=== PATIENT | female | born 1995 | race Caucasian/White ===

== ENCOUNTER → 2019-02-02 02:15 | Observation (INO) ==
[2019-02-02 00:22] LABS: Amphetamine Screen,Urine Negative ng/mL (Cutoff=1000); Barbiturate Screen,Urine Negative ng/mL (Cutoff=200); Benzodiazepines Screen,Urine Negative ng/mL (Cutoff=200); Cannabinoid Screen,Urine Negative ng/mL (Cutoff = 50); Cocaine Screen,Urine Negative ng/mL (Cutoff= 300); Opiate Screen,Urine Negative ng/mL (Cutoff=300); Phencyclidine Screen,Urine Negative ng/mL (Cutoff=25)
--- NOTE | 2019-02-02 02:46 | OB/GYN Progress Note ---
Date of Encounter: 02/02/19 Time of Encounter: 02:44 - Assessment and Plan (1) 38 weeks gestation of Current Visit: Yes Status: Acute (2) Uterine contractions during Current Visit: Yes Status: Acute No change on serial cervical exams. Discharged home with labor and when to return to triage precautions. Patient verbalizes understanding and in agreement with plan Subjective - Subjective Interval history: 38 weeks gestation presents to triage with complaints of contractions. Patient started luz last evening and have become stronger more frequent. Reports good movement, denies vaginal bleeding or leaking of fluid. Antepartum ROS: movement normal, contractions, no loss of fluid, no vaginal bleeding Objective - Exam FHR: auscultation normal Cervical dilation: Fingertip/thick/high per RN
== END | disposition home or self-care (01) ==
LOC: 1NENULAB
PROVIDERS: ADMIT Advanced Practice Midwife; ATTEND Advanced Practice Midwife

== ENCOUNTER 2019-02-19 13:29 | Inpatient (IN) ==
[2019-02-19] MEDS ORDERED: Ringers Solution, Lactated 1,000 ML ONE (14:50)
[2019-02-19] MEDS ORDERED: Lidocaine 1% 20 ML MDV ID PRN (14:59)
[2019-02-19] MEDS ORDERED: Metoclopramide 10 MG/2 ML VIAL IVP PRN (14:59)
[2019-02-19] MEDS ORDERED: Famotidine 20 MG/2 ML VIAL IVP PRN (14:59)
[2019-02-19] MEDS ORDERED: Naloxone 0.4 MG/ML INJ IVP PRN (14:59)
[2019-02-19] MEDS ORDERED: Ondansetron 4 MG/2 ML VIAL IVP PRN (14:59)
[2019-02-19] MEDS ORDERED: Ringers Solution, Lactated 1,000 ML IVC SCH (15:00)
[2019-02-19] MEDS ORDERED: Penicillin G Potassium 5,000,000 UNIT in 0.9 % Sodium Chloride Mini Bag 100 ML IVPB ONE (15:01)
[2019-02-19 15:19] LABS: Basophils % 0.4 %; Eosinophils # 0.2 K/mcL (0.0-0.6); Eosinophils % 1.4 %; Hematocrit 38.4 % (35.3-44.9); Immature Granulocytes % 1.4 % (0-4); Lymphocytes % 18.2 %; Mean Corpuscular HGB Conc 33.9 g/dL (31.6-35.5); Mean Corpuscular Volume 85.7 fL (83.0-100.0); Mean Platelet Volume 12.4 fL (9.4-12.4); Monocytes # 0.7 K/mcL (0.0-1.3); Platelet Count 159 K/mcL (140-400); Red Blood Count 4.48 M/mcL (3.82-4.97); Red Cell Distribution Width 14.7 % (11.5-14.5); Segmented Neutrophils % 72.6 %; White Blood Count 10.9 K/mcL (4.3-11.1)
[2019-02-19 15:29] LABS: Amphetamine Screen,Urine Negative ng/mL (Cutoff=1000); Barbiturate Screen,Urine Negative ng/mL (Cutoff=200); Benzodiazepines Screen,Urine Negative ng/mL (Cutoff=200); Cannabinoid Screen,Urine Negative ng/mL (Cutoff = 50); Cocaine Screen,Urine Negative ng/mL (Cutoff= 300); Opiate Screen,Urine Negative ng/mL (Cutoff=300); Phencyclidine Screen,Urine Negative ng/mL (Cutoff=25)
[2019-02-19] MEDS ORDERED: miSOPROStol 25 MCG TABLET PO PRN (15:38)
[2019-02-19] MEDS ORDERED: Oxytocin 20 units/ LR 1000 mL 20 UNIT/1,000 ML BAG IVC SCH (15:45)
[2019-02-19] MEDS: *HR* Nalbuphine 10 MG/ML AMPUL IVP PRN ×2 (16:17→20:20)
--- NOTE | 2019-02-19 16:22 | OB/GYN History & Physical ---
Date of Encounter: 02/19/19 Time of Encounter: 16:13 Assessment and Plan (1) Post term over 40 weeks Current visit: Yes Status: Acute Admit for IOL at 40w3d Discussed double kelly induction with patient and she agrees to proceed. Double cervical kelly balloon placed without difficulty. 60mL sterile water instilled in uterine balloon, 40mL sterile water instilled in vaginal balloon. Recheck cervix in 4 hours AROM when appropriate Epidural or IV pain medication when patient desires. Anticipate (2) heart rate decelerations affecting management of mother Current visit: Yes Status: Acute Admit to L&D for IOL at 40w3d due to post term and FHR decelerations Continous monitoring. (3) GBS (group B Streptococcus carrier), +RV culture, currently Current visit: Yes Status: Acute PCN prophylaxis q4h until delivery. (4) Blood type O+ Current visit: Yes Status: Acute Collect cord blood at delivery History of Present Illness Chief complaint: Contractions 40w3d HPI: Ms. Escoto is a 24 year old female at 40w3d who presents today with complaints of regular contractions that have been getting progressively worse since 0430 this morning. She reports positive movement, denies vaginal bleeding and reports some bloody show today. Shortly after arrival, there were some variable decelerations noted followed by one 70 second decel to a qi of 90 bpm. Another prolonged deceleration was noted approximately 10 minutes after that. Due to her gestation and presence of decelerations, decision was made in collaboration with Dr. Canada to admit for IOL. Patient is agreeable to this plan. Blood type O+ GBS POSITIVE HbSAG negative RPR negative Rubella Immune Varicella Immune Past Med Surg Social Fam HX - Past Medical History Source: patient Medical history: no medical history Psychiatric history: anxiety, depression - Past Surgical History Surgical History: other Additional surgical history: wisdom teeth, mole removal from back - Social History Smoking Status: Never smoker Smokeless Tobacco Status: No Alcohol use: none Drug use: none Current living situation: Home - Independent, With Family Activity Level: Independent ambulation Recent Out of Country Travel Within the Last 8 Weeks: No Exposure or Possible Exposure to Illness During Travel: No - Family History Mother Living Status: Still Living Hx Family Cardiac Disorders: Yes (high cholesterol) Hx Family Respiratory Disorders: No Hx Family Cancer: No Hx Family GI Disorders: No Hx Family Genitourinary Disorders: No Hx Family Endocrine Disorder: Yes ([place]) Hx Family Musculoskeletal Disorders: No Hx Family Neuromuscular Disorders: No Hx Family Neurologic Disorders: No Hx Family HEENT Disorders: No Hx Family Autoimmune Disorders: No Hx Family Reproductive Disorders: No Hx Family Psychosocial Disorders: No Hx Family Medical Disorders: No Obstetrical History - Pregnancies : 1 Medications and Allergies Ferrous Sulfate 325 mg PO DAILY 12/10/18 [History] Formula Tablet 1 tab PO DAILY 12/10/18 [History] Zoloft 50 mg PO DAILY 12/10/18 [History] Rajani-D 24 Hour Tablet 02/01/19 [History] Allergy/AdvReac Type Severity Reaction Status Date / Time No Known Allergies Allergy Verified 02/01/19 23:46 Review of System OB All systems PM: reviewed and no additional remarkable complaints except as stated Exam - Constitutional Constitutional: well developed, well nourished, no acute distress, average body habitus - HEENT HEENT: Mucus Membranes Moist - Neck Neck exam: full ROM - Lungs Respiratory exam: CTAB - Cardiovascular Cardiovascular exam: RRR, +S1, +S2 - Abdomen Abdomen: Present: bowel sounds normal, gravid, non tender - Extremities Extremities exam: full ROM, normal capillary refill, normal inspection - Vulva Vulva: bilateral: normal - Vagina Vagina: Present: normal moisture - Cervix Dilation: 1 (1-2 cm) Effacement: 80 Station: -2 - Uterus Uterus exam: Present: normal size Results Result Diagrams: 02/19/19 15:00 Abnormal lab results RDW 14.7 % (11.5-14.5) H 02/19/19 15:00 All other labs normal. - VTE Reasons for not Prescribing Prophylaxis: Treatment not Indicated - Low risk for VTE
--- NOTE | 2019-02-19 19:24 | Anesthesia Evaluation PreOp ---
Date of Encounter: 02/19/19 Time of Encounter: 19:00 - Past History Planned Operation: labor epidural Cardiac History: Denies any Significant Hx Pulmonary History: Denies Any Significant HX OPERATIONS CONTROLLER History: Other (anxiety/depression/OCD. On Zoloft.) Other Medical History: Other ([place], BMI 49. Also reports a cheerleading injury to back approximately 2010. was told had multiple bulging discs with possible fractures. Unsure of what vertebra involved, was told her entire spine was involved. Did not have any surgery and was seen a few times by a chiropractor. Denies problems with back now, no recurrence of problems with . Has no numbness/tingling to legs. Discussed with patient the possibility of the epidural procedure aggravating or worsening any possible previous injury to her back. She verbalized understanding and proceeded with signing the consent.) Anesthesia History: No Prior Anesthetic Complications, Past Anesthesia (wisdom teeth extracted, no problems. Has never had GA. No FHAP.) : Yes Alcohol Use: none Drug use: none Medications and Allergies Ferrous Sulfate 325 mg PO DAILY 12/10/18 [History] Formula Tablet 1 tab PO DAILY 12/10/18 [History] Zoloft 50 mg PO DAILY 12/10/18 [History] Rajani-D 24 Hour Tablet 02/01/19 [History] Allergy/AdvReac Type Severity Reaction Status Date / Time No Known Allergies Allergy Verified 02/01/19 23:46 - Meds/Allergy Pre-op Review Medications Reviewed: Yes Allergies Reviewed: Yes Beta Blockers on Current Med List: No Anesthesia Results - Labs 02/19/19 15:00 Anesthesia Exam 142/91, 77,16. FHTs 120s. Height: 5'3" Weight: 127 kg NPO (# of Hours): 6.5 Pain Scale: 3 Pain Scale Used: Numeric (1 - 10) - HEENT Pupil (Motor): Pupils equal Mallampati: III Teeth: Normal Oral Opening: Greater than 3 - OPERATIONS CONTROLLER LOC: Oriented OPERATIONS CONTROLLER Motor: Normal RUE, Normal LUE, Normal RLE, Normal LLE, Normal Face OPERATIONS CONTROLLER Sensory: Normal: RUE, LUE, RLE, LLE, Face - Cardiac Rhythm: Regular - Pulmonary Breath Sounds: bilateral Clear Respiratory Effort: Symmetrical Anesthesia Assess/Plan ASA Score: 3 ([place], BMI 49. Anxiety/depression.) Monitoring Plan: Standard Monitors
--- NOTE | 2019-02-19 19:29 | OB Labor Progress Note ---
Date of Encounter: 02/19/19 Time of Encounter: 19:23 Labor Progress Note - Subjective Subjective: Patient coping well with contractions. Family at bedside for support. - Vital Signs Vital Signs: WNL - Cervix Cervix: 4 cm - Heart Tones Heart Tones: FHR 125 bpm, moderate variability, +15x15 accels, occasional variable decels. - [place]: 2-4 minutes - Interventions Interventions: SVE after removal of vaginal balloon water. 4 cm on SVE, Vaginal kelly balloon reinflated. - Plan Physician notified: Yes Physician notified details: Dr. Canada notified of SVE Plan: Cervical kelly to remain in place. Recheck cervix in 4 hours. AROM when appropriate IV pain medication or epidural when patient desires Anticipate
[2019-02-19] MEDS ORDERED: Epidural Premix (fent/bupiv) 110 ML EP SCH (19:30)
[2019-02-19] MEDS: Penicillin G Potassium 2,500,000 UNIT in 0.9 % Sodium Chloride 100 ML IVPB SCH (20:19)
--- NOTE | 2019-02-19 22:10 | OB Labor Progress Note ---
Date of Encounter: 02/19/19 Time of Encounter: 20:58 Labor Progress Note - Subjective Subjective: Patient coping well with contractions. - Cervix Cervix: 5-6 cm - Heart Tones Heart Tones: FHR 130 bpm, moderate variability, +15x15 accels, no decels. - [place]: Irregular. Difficult to determine due to patient positioning. - Interventions Interventions: SVE Kelly balloon removed - Plan Physician notified: Yes Physician notified details: Dr. Canada made aware of SVE and kelly removal Plan: Start Pitocin once second dose of PCN has infused. AROM when appropriate Anticipate
--- NOTE | 2019-02-20 00:56 | OB Labor Progress Note ---
Date of Encounter: 02/20/19 Time of Encounter: 00:53 Labor Progress Note - Subjective Subjective: Pt tolerating contractions well - Cervix Cervix: 7/80/-2 - Heart Tones Heart Tones: Baseline 150 Moderate variability Accelerations present 15x15 No decelerations FHR Category I - [place]: Contractions every 2-3 minutes and palpate strong - Interventions Interventions: SVE - Plan Physician notified: No Plan: Continue induction management Frequent position changes May have epidural upon request Continuous labor support Anticipate
[2019-02-20] MEDS ORDERED: *HR* FentaNYL (PF) 100 MCG/2 ML VIAL ONE (01:52)
[2019-02-20] MEDS ORDERED: Bupivacaine-MPF 0.25% 10 ML VIAL ONE (01:52)
--- NOTE | 2019-02-20 02:39 | Anesthesia Procedures ---
Date of Encounter: 02/20/19 Time of Encounter: 01:55 Procedures: Anesthesia - Epidural/Spinal Patient ID/Chart reviewed: Yes Patient examined: Yes OB Eval: Gestational age: 40 OB Eval: : 1 OB Eval: Hx Para: 0 OB Eval: Dilated at (cm): 7 OB Eval: Contractions: Non-stressed pattern Consent Obtained: Yes Supplemental Oxygen: None/Room Air Site Prep: Aseptic Technique, Sterile prep and drape, 0.5% Chlorhexidine/Alcohol Patient position: upright Local Anesthetic: Lidocaine 1% Amount of Local Anesthetic used: 5 Touhy Needle Gauge: 18 Touhy Needle Depth (cm): 9 Catheter Depth at Skin (cm): 15 Test Dose (1.5% Lido + Epi): Volume given (mls): 3 Test Dose Result: Negative Loading Dose: 0.25% Marcaine (mls): 5 Loading Dose: Fentanyl (mcg): 100 Loading Dose Administered: Thru Catheter Infusion Med: 0.125% Bupivacaine w/ 2 mcg/ml Fentanyl Infusion Rate (mls/hr): 13 (demand [id number] q 20 mins. limit of 2 per hour) Catheter Secured in Place: Tegaderm, Tape Interspace Used: L3-L4 Loss of Resistance ([place]): Yes Blood: No CSF: No Paresthesia: No Procedure: dural puncture technique with 25 gauge annie, no meds given in subarachnoid space. Vitals + FHT's: Vital Signs Time 0155 0215 0220 0225 0230 BP 125/76 136/75 120/70 111/60 114/80 Pulse 97 85 89 87 87 FHTs 120 130 120 120 120
--- NOTE | 2019-02-20 02:44 | OB Labor Progress Note ---
Date of Encounter: 02/20/19 Time of Encounter: 02:39 Labor Progress Note - Subjective Subjective: Patient comfortable with epidural - Cervix Cervix: 7/80/-1 - Heart Tones Heart Tones: Baseline 140 Moderate variability Accelerations present 15 x 15 Variable and prolonged decelerations resolved with position changes FHR category II - [place]: Contractions every 4 minutes - Interventions Interventions: SVE AROM-moderate amount of thick meconium-stained fluid Peanut ball on the left side - Plan Physician notified: No Plan: Continue induction management Hourly position changes with peanut ball Reassess cervix in 2-4 hours Anticipate
--- NOTE | 2019-02-20 03:14 | OB Labor Progress Note ---
Date of Encounter: 02/20/19 Time of Encounter: 03:04 Labor Progress Note - Subjective Subjective: Pt comfortable with epidural - Cervix Cervix: 7-8/80/-2 - Heart Tones Heart Tones: Baseline 140 Moderate variability No accelerations Variable and late decelerations with iq in 80's FHR category II - [place]: Contractions every 2-4 minutes - Interventions Interventions: SVE IUPC placed FSE placed - Plan Physician notified: Yes Physician notified details: Dr. Canada notified of category II tracing Plan: Continue induction management Position changes as needed Anticipate
[2019-02-20] MEDS: Penicillin G Potassium 2,500,000 UNIT in 0.9 % Sodium Chloride 100 ML IVPB SCH (04:20)
--- NOTE | 2019-02-20 04:37 | OB Labor Progress Note ---
Date of Encounter: 02/20/19 Time of Encounter: 04:34 Labor Progress Note - Subjective Subjective: Pt comfortable with epidural - Cervix Cervix: 7-8/80/-2 - Heart Tones Heart Tones: Baseline 120 Minimal variability No accelerations Late and variable decelerations FHR Category II - [place]: IUPC wtih contractions every 4 minutes - Interventions Interventions: SVE Position changes - Plan Physician notified: Yes Physician notified details: Dr. Canada called to bedside for persistent category II tracing Plan: At this time care is turned over to Dr. Canada in order to proceed with PLTCS for NRFHT
[2019-02-20] MEDS ORDERED: *HR* Morphine Sulfate/PF 10 MG/10 ML AMPUL ONE (04:40)
[2019-02-20] MEDS ORDERED: Lidocaine/EPI 1:200k 2% PF 20 ML VIAL ONE (04:40)
[2019-02-20] MEDS ORDERED: *HR* Oxytocin 10 UNIT/ML VIAL IM ONE ×2 (04:41→05:09)
[2019-02-20] MEDS ORDERED: Water for inj. (sterile) 10 ML ONE ×3 (04:41→05:15)
[2019-02-20] MEDS ORDERED: Ringers Solution, Lactated 1,000 ML ONE (05:03)
[2019-02-20] MEDS ORDERED: EPHEDrine 50 MG/ML VIAL ONE (05:15)
--- NOTE | 2019-02-20 05:35 | OB/GYN Procedure Note ---
Section - Date of procedure: 02/20/19 Preop diagnosis: arrest of descent, category 2 FHT tracing, category 3 FHT tracing Post-op diagnosis: same Procedure: primary low transverse Surgeon: Jessica Chappell Blood Loss: 400 Was there an activities assistant present: No Firer Tunnel Kiln: Jodi Almanza Anesthesia Type: Epidural section complications: none Disposition: PACU Specimens: Cord blood - Infant (s) A Delivery Date: 02/20/19 Delivery Time: 05:04 Presentation: vertex Position: unknown Route of delivery: other Gender: Male Viability: Viable Pounds: 8 Ounces: 6 Gram Weight: 3.795 kg at 1 minute: 8 at 5 minutes: 9 Shoulder Dystocia: not encountered Specimens collected: cord blood Placenta: partial extraction Cord: nuchal cord, nuchal reduced - Narrative Narrative: Preoperative diagnosis: Nonreassuring heart rate monitoring Postoperative diagnosis: Same Procedure: Primary low transverse section Surgeon: Parris Anesthesia: Epidural Complications: None Estimated loss: 400 mL Findings: Normal uterus ovaries and fallopian tube. Mildly stained meconium stained fluid. Viable male with Apgars of 8 and 9. Procedure: Patient was taken to the operating suite and after adequate anesthesia was assured she is prepped and draped in the usual sterile fashion. A Pfannenstiel incision was created and taken down through the subcutaneous fascia fascia was the rectus muscles. Rectus muscles were divided in the midline appear to cavity is entered superiorly without consequence to bowel or bladder. The uterus was entered in a low transverse fashion. Upon entry into uterus a small amount of meconium-stained fluid was noted. A viable male was atraumatically delivered from the uterus without difficulty. There was a loose nuchal cord gently reduced. Cord was doubly clamped and cut and infant was handed to our nurses in attendance. Apgars were 8 and 9 at one and 5 minutes respectively. When all placental fragments were set clean from the uterus the uterus is close to one length of Vicryl in a running and locked fashion. The uterus was replaced within the abdominal cavity. Surgical sites were all inspected. Irrigation was performed. Hemostasis was assured. When all sponge lap needle and instrument counts for surgical be correct 2 the fascia was closed with one length of Vicryl. The subcutaneous tissue was closed with interrupted sutures and the skin was closed with cruz. We had no intraoperative complications. Both mother and baby were doing well. The procedure. At the end the procedure final lap sponge and instrument counts were correct 2.
[2019-02-20] MEDS ORDERED: Famotidine 20 MG/2 ML VIAL IVP SCH (06:00)
[2019-02-20] MEDS ORDERED: Ibuprofen 400 MG TABLET PO PRN (06:14)
[2019-02-20] MEDS ORDERED: *HR* OxyCODONE/APAP 5/325 TABLET PO PRN (06:14)
[2019-02-20] MEDS ORDERED: *HR* HYDROmorphone (PF) 1 MG/ML SYRINGE IVP PRN (06:14)
--- NOTE | 2019-02-20 06:38 | Anesthesia Evaluation Post Op ---
Date of Encounter: 02/20/19 Time of Encounter: 06:33 - Vital Signs Vital Signs: VSS throughout pacu stay. - Lungs Lungs: Clear Ascult./Percussion - Airway Airway: Non-obstructed - Cardiovascular Regular Rate - Mental Status Mental Status: Alert & Oriented, Answers Appropriately - Pain Pain Scale: 0 Pain Scale used: Numeric (1 - 10) - Nausea Vomiting Nausea Vomiting: Not Present - Hydration Hydration: NPO, Oates catheter - Discharge PostOp Status: Transfer Patient to floor
[2019-02-20] MEDS ORDERED: ceFAZolin 1,000 MG in Water for inj. (sterile) 10 ML IVP SCH (08:00)
[2019-02-20] MEDS ORDERED: Acetaminophen 325 MG TABLET PO PRN (09:02)
[2019-02-20] MEDS ORDERED: Rho Immune Globulin 1,500 UNIT SYRINGE IM ONE (09:02)
[2019-02-20] MEDS ORDERED: Ondansetron 4 MG/2 ML VIAL IVP PRN (09:02)
[2019-02-20] MEDS ORDERED: Oxytocin 20 units/ LR 1000 mL 20 UNIT/1,000 ML BAG IVC SCH (09:02)
[2019-02-20] MEDS ORDERED: Sennosides 8.6 MG TABLET PO PRN (09:02)
[2019-02-20] MEDS ORDERED: Metoclopramide 10 MG/2 ML VIAL IVP PRN (09:02)
[2019-02-20] MEDS: *HR* OxyCODONE/APAP 5/325 TABLET PO PRN ×2 (15:48→22:36)
[2019-02-20] MEDS: Ibuprofen 600 MG TABLET PO PRN (22:06)
[2019-02-21] MEDS: Ibuprofen 600 MG TABLET PO PRN ×2 (07:02→15:17)
[2019-02-21] MEDS: *HR* OxyCODONE/APAP 5/325 TABLET PO PRN ×3 (07:03→20:03)
[2019-02-21 08:13] LABS: Basophils % 0.2 %; Eosinophils # 0.2 K/mcL (0.0-0.6); Eosinophils % 2.1 %; Hematocrit 32.6 % (35.3-44.9); Immature Granulocytes % 0.6 % (0-4); Lymphocytes # 1.7 K/mcL (0.6-4.6); Lymphocytes % 16.1 %; Mean Corpuscular HGB Conc 32.8 g/dL (31.6-35.5); Mean Corpuscular Hemoglobin 29.2 pg (28.0-33.3); Mean Corpuscular Volume 88.8 fL (83.0-100.0); Mean Platelet Volume 11.7 fL (9.4-12.4); Monocytes # 0.7 K/mcL (0.0-1.3); Monocytes % 6.6 %; Neutrophils # 8.1 K/mcL (1.6-8.9); Platelet Count 117 K/mcL (140-400); Red Blood Count 3.67 M/mcL (3.82-4.97); Red Cell Distribution Width 14.9 % (11.5-14.5); Segmented Neutrophils % 74.4 %; White Blood Count 10.8 K/mcL (4.3-11.1)
[2019-02-21 08:17] LABS: Hemoglobin 10.7 g/dL (11.5-15.4)
[2019-02-21] MEDS: Prenatal Vit/FA 1 EACH TABLET PO SCH (08:37)
--- NOTE | 2019-02-21 10:27 | OB/GYN Progress Note ---
Date of Encounter: 02/21/19 Time of Encounter: 10:25 - Assessment and Plan (1) S/P primary low transverse Current Visit: Yes Status: Acute patient is postop day one meeting day one milestones anticipate discharge home tomorrow (2) Breast feeding status of mother Current Visit: Yes Status: Acute support prn Subjective - Subjective Principal diagnosis: Patient status post primary c/s Interval history: Patient is postop day 1. She is passing gas and ambulating without difficulty. Patient reports pain is well controlled. Lochia is light and without blood clots. Patient reports: appetite normal, voiding normally, pain well controlled, ambulating normally : doing well, nursing well Objective - Vital Signs Latest vital signs: Vital Signs Temp Pulse Pulse Resp BP Pulse Ox 02/21/19 09:58 16 02/21/19 08:20 98.7 F 92 14 113/71 97 02/21/19 04:50 98.4 F 88 15 88/62 98 02/21/19 00:01 98.7 F 89 16 104/67 96 02/20/19 22:39 98 02/20/19 22:06 98.6 F 101 16 107/72 97 02/20/19 16:00 98.2 F 102 16 111/65 02/20/19 11:30 97.9 F 100 16 110/70 98 02/20/19 10:41 97.7 F 121 16 109/64 98 Intake and Output 02/20/19 02/21/19 02/21/19 23:59 07:59 15:59 Intake Total 500 / 600 1090 / 1090 Output Total 750 / 1250 400 / 400 Balance -250 / -650 690 / 690 Intake: IV Fluids 1090 / 1090 Pitocin 20 unit In 1,000 ml @ 990 / 990 125 mls/hr IVC .Q8H DELANEY Rx#: [id number] Ancef 2,000 MG In 0.9 % Sodium 100 / 100 Chloride 100 ML @ 200 mls/hr IVPB Q8HR DELANEY Rx#:[id number] Oral 500 / 500 Output: Catheter 750 / 1250 400 / 400 Other: Stool Characteristics Normal for Patient Normal for Patient Weight 123.105 kg Patient Weight 02/21/19 23:59 Weight 123.105 kg - Exam Lungs: bilateral: normal Chest: Normal S1, Normal S2 Extremities: Present: normal Abdomen: Present: normal appearance, soft, gravid Incision: Present: normal, dry, intact Uterus: Present: normal, firm - Labs Labs: Laboratory Results - last 24 hr 02/21/19 08:02 WBC 10.8 RBC 3.67 L Hgb 10.7 L D Hct 32.6 L MCV 88.8 MCH 29.2 MCHC 32.8 RDW 14.9 H Plt Count 117 L MPV 11.7 Immature Gran % 0.6 Seg Neutrophils % 74.4 Lymphocytes % 16.1 Monocytes % 6.6 Eosinophils % 2.1 Basophils % 0.2 Neutrophils # 8.1 Lymphocytes # 1.7 Monocytes # 0.7 Eosinophils # 0.2 Basophils # 0.0
[2019-02-21] MEDS: Loratadine/Pseudophed (12 HR) 1 EACH TABLET PO SCH (11:09)
[2019-02-21] MEDS: Simethicone 80 MG TAB.CHEW PO PRN ×2 (15:17→20:03)
[2019-02-21] MEDS ORDERED: Ringers Solution, Lactated 1,000 ML ONE (23:20)
[2019-02-22] MEDS: Ibuprofen 600 MG TABLET PO PRN ×2 (00:08→08:04)
[2019-02-22] MEDS: Loratadine/Pseudophed (12 HR) 1 EACH TABLET PO SCH (00:10)
[2019-02-22] MEDS: Prenatal Vit/FA 1 EACH TABLET PO SCH (08:04)
[2019-02-22] MEDS: Simethicone 80 MG TAB.CHEW PO PRN (08:04)
[2019-02-22 09:43] VITALS: BP 105/70
--- NOTE | 2019-02-22 11:47 | Discharge Summary ---
Date of Encounter: 02/22/19 Time of Encounter: 11:45 - Discharge Diagnosis (1) S/P primary low transverse Priority: Primary Status: Acute Comments: Patient meeting day two milestones. Pain well-controlled with prescribed medications. Voiding without difficulty, tolerating regular diet, bleeding light. No bowel movement yet, + flatus. Anticipate discharge today [facility] report reviewed and appropriate (2) Breast feeding status of mother Priority: Secondary Status: Acute Comments: support as needed Will provide breast pump prescription if needed. - Discharge Medications Prescriptions: New Loratadine/Pseudophed (12 HR) [Claritin D (12HR)] 1 each PO BID tablet Docusate [Colace] 100 mg PO BID #60 capsule Ibuprofen [Motrin] 600 mg PO Q6HR PRN #60 tablet PRN Reason: Cramping OxyCODONE/APAP 5/325 [Percocet 5/325 MG] 1 each PO Q6H PRN 7 Days #28 tablet PRN Reason: Moderate pain 4-6 Acetaminophen [Tylenol] 325 mg PO Q6HR PRN tablet PRN Reason: Fever/Pain Simethicone [Gas-X] 80 mg PO TID PRN tab.chew PRN Reason: Dyspepsia Continued Formula Tablet 1 tab PO DAILY Zoloft 50 mg PO DAILY Rajani-D 24 Hour Tablet Discontinued Ferrous Sulfate 325 mg PO DAILY Home Medications: Formula Tablet 1 tab PO DAILY 12/10/18 [History] Zoloft 50 mg PO DAILY 12/10/18 [History] Rajani-D 24 Hour Tablet 02/01/19 [History] Acetaminophen [Tylenol] 325 mg PO Q6HR PRN tablet 02/22/19 [Rx] Docusate [Colace] 100 mg PO BID #60 capsule 02/22/19 [Rx] Ibuprofen [Motrin] 600 mg PO Q6HR PRN #60 tablet 02/22/19 [Rx] Loratadine/Pseudophed (12 HR) [Claritin D (12HR)] 1 each PO BID tablet 02/22/19 [Rx] OxyCODONE/APAP 5/325 [Percocet 5/325 MG] 1 each PO Q6H PRN 7 Days #28 tablet 02/22/19 [Rx] Simethicone [Gas-X] 80 mg PO TID PRN tab.chew 02/22/19 [Rx] Allergies/Adverse Reactions: Allergy/AdvReac Type Severity Reaction Status Date / Time No Known Allergies Allergy Verified 02/01/19 23:46 Data Procedures and tests throughout hospitalization: Laboratory Tests 02/19/19 02/19/19 02/21/19 15:00 15:00 08:02 WBC 10.9 10.8 RBC 4.48 3.67 L Hgb 13.0 10.7 L D Hct 38.4 32.6 L MCV 85.7 88.8 MCH 29.0 29.2 MCHC 33.9 32.8 RDW 14.7 H 14.9 H Plt Count 159 117 L MPV 12.4 11.7 Immature Gran % 1.4 0.6 Seg Neutrophils % 72.6 74.4 Lymphocytes % 18.2 16.1 Monocytes % 6.0 6.6 Eosinophils % 1.4 2.1 Basophils % 0.4 0.2 Neutrophils # 8.0 8.1 Lymphocytes # 2.0 1.7 Monocytes # 0.7 0.7 Eosinophils # 0.2 0.2 Basophils # 0.0 0.0 Urine Opiates Screen Negative Ur Buprenorphine Scrn Negative Ur Barbiturates Screen Negative Ur Phencyclidine Scrn Negative Ur Amphetamines Screen Negative U Benzodiazepines Scrn Negative Urine Cocaine Screen Negative U Marijuana (THC) Screen Negative Ur Drug Screen Interp See Below Date of admission: 02/19/19 13:29 Primary care physician: Alicia Mendez CNP Discharging clinician: Samira Wu Anticipated date of discharge: 02/22/19 - Patient Status Disposition: Home, Self-Care Condition: Good Functional capacity at discharge: independent ambulation Overall status at discharge: patient is progressing back to baseline - Discharge Instructions Follow Up With: Alicia Mendez CNP [Primary Care Provider] - Oebd Peterson DO [Partnered Physician] - - Diet and Activity Activity: resume usual activities as tolerated Diet: regular diet Hospital Course Reason for admission: induction of labor (Came in with c/o contractions, had decels.), IUP at term Time Attestation: Total time spent providing and/or coordinating discharge services: - VTE Reasons for not Prescribing Prophylaxis: Treatment not Indicated - Low risk for VTE Documentation of Mechanical Device: Intermittent pneumatic compression device Exam - Constitutional Vitals: Temp Pulse Resp BP Pulse Ox 97.9 F 92 16 105/70 98 02/22/19 08:10 02/22/19 08:10 02/22/19 10:07 02/22/19 08:10 02/22/19 08:10 General appearance IM: A&O X 3, pleasant, no acute distress, answers questions appropriately - Respiratory Respiratory exam: Present: CTAB. Absent: respiratory distress - Cardiovascular Cardiovascular exam IM: Present: RRR, +S1, +S2. Absent: irregular rhythm - GI/Abdominal GI/Abdominal exam IM: normal bowel sounds Incision: normal, dry, intact (cruz intact) - Rectal Rectal exam: deferred - External exam: normal external exam Uterine Tone: Firm Uterus Position: At Umbilicus, Midline - Extremities Exam Extremities exam IM: Present: full ROM, normal capillary refill, normal inspecti on. Absent: calf tenderness - Neurological Exam Neurological exam: alert, normal gait, oriented X3
[2019-02-22] MEDS: *HR* OxyCODONE/APAP 5/325 TABLET PO PRN (12:51)
== END 2019-02-22 14:30 | disposition home or self-care (01) | DRG 788 ==
LOC: 1NENULAB → OBSVTOIN 13:29 → 1NENUOBS 02-20 09:00
PROVIDERS: ADMIT Registered Nurse; ATTEND Registered Nurse

== ENCOUNTER → 2020-07-14 03:53 | Observation (INO) | END | disposition home or self-care (01) | LOC: 1NENULAB | PROVIDERS: ADMIT Obstetrics & Gynecology; ATTEND Obstetrics & Gynecology ==

== ENCOUNTER → 2020-07-15 15:14 | Observation (INO) | END | disposition home or self-care (01) | LOC: 1NENULAB | PROVIDERS: ADMIT Obstetrics & Gynecology; ATTEND Obstetrics & Gynecology ==

== ENCOUNTER 2020-07-22 03:49 | Inpatient (IN) ==
[2020-07-22] MEDS ORDERED: Acetaminophen 325 MG TABLET PO ONE (05:13)
[2020-07-22] MEDS ORDERED: *HR* FentaNYL (PF) 100 MCG/2 ML VIAL IVP PRN (06:02)
[2020-07-22] MEDS ORDERED: Ondansetron 4 MG/2 ML VIAL IVP STA (08:05)
[2020-07-22] MEDS ORDERED: Ringers Solution, Lactated 1,000 ML ONE ×2 (09:24→11:15)
[2020-07-22] MEDS ORDERED: EPHEDrine 50 MG/ML VIAL IVP PRN (09:27)
[2020-07-22] MEDS ORDERED: *HR* FentaNYL (PF) 100 MCG/2 ML VIAL EP ONE (09:27)
[2020-07-22] MEDS ORDERED: Ropivacaine/PF 0.2% 20 ML VIAL EP ONE (09:27)
[2020-07-22] MEDS ORDERED: *HR* FentaNYL (PF) 100 MCG/2 ML VIAL ONE ×5 (09:34→19:55)
[2020-07-22] MEDS ORDERED: Ropivacaine/PF 0.2% 20 ML VIAL ONE (09:34)
[2020-07-22 09:46] LABS: Hematocrit 43.3 % (35.3-44.9)
[2020-07-22 09:48] LABS: Basophils % 0.2 %; Eosinophils # 0.1 K/mcL (0.0-0.6); Eosinophils % 0.7 %; Hemoglobin 14.2 g/dL (11.5-15.4); Immature Granulocytes % 0.7 % (0-4); Immature Platelets 12.5 % (1.1-6.1); Lymphocytes # 2.7 K/mcL (0.6-4.6); Lymphocytes % 21.7 %; Mean Corpuscular HGB Conc 32.8 g/dL (31.6-35.5); Mean Corpuscular Hemoglobin 28.7 pg (28.0-33.3); Mean Corpuscular Volume 87.7 fL (83.0-100.0); Mean Platelet Volume 12.4 fL (9.4-12.4); Monocytes # 0.7 K/mcL (0.0-1.3); Monocytes % 5.6 %; Neutrophils # 8.9 K/mcL (1.6-8.9); Platelet Count 159 K/mcL (140-400); Red Blood Count 4.94 M/mcL (3.82-4.97); Red Cell Distribution Width 15.1 % (11.5-14.5); Segmented Neutrophils % 71.1 %; White Blood Count 12.5 K/mcL (4.3-11.1)
[2020-07-22] MEDS ORDERED: Azithromycin 500 MG in 0.9 % Sodium Chloride 250 ML IVPB ONE (10:02)
[2020-07-22] MEDS ORDERED: Famotidine 20 MG/2 ML VIAL IVP PRN (10:02)
[2020-07-22] MEDS ORDERED: Naloxone 0.4 MG/ML INJ IVP PRN (10:02)
[2020-07-22] MEDS ORDERED: Metoclopramide 10 MG/2 ML VIAL IVP PRN (10:02)
[2020-07-22] MEDS ORDERED: Ondansetron 4 MG/2 ML VIAL IVP PRN (10:02)
[2020-07-22] MEDS ORDERED: Penicillin G Potassium 5,000,000 UNIT in 0.9 % Sodium Chloride Mini Bag 100 ML IVPB ONE (10:08)
[2020-07-22 10:14] LABS: Anisocytosis 1+ (Not Present); Large Platelets Present (Not Present); Platelet Estimate Normal (Normal)
[2020-07-22] MEDS: Epidural Premix (fent/bupiv) 110 ML EP SCH (11:08)
[2020-07-22] MEDS ORDERED: Famotidine 20 MG/2 ML VIAL IVP STA (11:11)
[2020-07-22] MEDS: Penicillin G Potassium 2,500,000 UNIT/105 ML MLS IVPB SCH ×2 (15:26→19:36)
[2020-07-22] MEDS: Ringers Solution, Lactated 1,000 ML IVC SCH (19:36)
[2020-07-23] MEDS: Penicillin G Potassium 2,500,000 UNIT/105 ML MLS IVPB SCH ×3 (00:45→10:24)
[2020-07-23] MEDS: Epidural Premix (fent/bupiv) 110 ML EP SCH ×3 (00:51→13:03)
[2020-07-23] MEDS ORDERED: *HR* FentaNYL (PF) 100 MCG/2 ML VIAL ONE ×3 (01:53→13:36)
[2020-07-23] MEDS ORDERED: Ropivacaine/PF 0.2% 20 ML VIAL ONE (05:10)
[2020-07-23] MEDS: Ringers Solution, Lactated 1,000 ML IVC SCH (05:36)
[2020-07-23] MEDS ORDERED: *HR* Ropivacaine/PF 0.5% 20 ML VIAL ONE (08:43)
[2020-07-23] MEDS ORDERED: Sodium Bicarbonate 50 MEQ/50 ML VIAL ONE (08:44)
[2020-07-23] MEDS ORDERED: Lidocaine/EPI 1:200k 2% PF 20 ML VIAL ONE (08:44)
[2020-07-23] MEDS ORDERED: EPINEPHrine 1 MG/ML VIAL ONE (09:32)
[2020-07-23] MEDS ORDERED: Oxytocin 20 units/ LR 1000 mL 20 UNIT/1,000 ML BAG IVC SCH ×2 (10:30→15:15)
[2020-07-23 12:55] LABS: Adenovirus Not Detected (Not Detect); Bordetella Pertussis Not Detected (Not Detect); Chlamydophila pneumoniae Not Detected (Not Detect); Coronavirus 229E Not Detected (Not Detect); Coronavirus HKU1 Not Detected (Not Detect); Coronavirus NL63 Not Detected (Not Detect); Coronavirus OC43 Not Detected (Not Detect); Human Metapneumovirus Not Detected (Not Detect); Human Rhinovirus/Enterovirus Not Detected (Not Detect); Influenza A Subtype 2009 H1 Not Detected (Not Detect); Influenza B Not Detected (Not Detect); Mycoplasma pneumoniae Not Detected (Not Detect); Parainfluenza Virus 1 Not Detected (Not Detect); Parainfluenza Virus 2 Not Detected (Not Detect); Parainfluenza Virus 3 Not Detected (Not Detect); Parainfluenza Virus 4 Not Detected (Not Detect); Respiratory Syncytial Virus Not Detected (Not Detect); SARS-CoV-2 Not Detected (Not Detect)
[2020-07-23] MEDS ORDERED: Sennosides 8.6 MG TABLET PO PRN (15:15)
[2020-07-23] MEDS ORDERED: Lanolin 7 G OINT...G. TP PRN (15:15)
[2020-07-23] MEDS ORDERED: Acetaminophen 325 MG TABLET PO PRN (15:15)
[2020-07-23] MEDS: Ibuprofen 600 MG TABLET PO PRN ×2 (16:58→22:19)
[2020-07-23] MEDS: Benzocaine/Menthol 56 GM AEROSOL SPRAY TP PRN ×2 (16:59→19:29)
[2020-07-23] MEDS ORDERED: Ringers Solution, Lactated 500 ML ONE (19:00)
[2020-07-23] MEDS ORDERED: Ringers Solution, Lactated 500 ML IVC SCH (19:15)
[2020-07-23] MEDS: *HR* OxyCODONE/APAP 5/325 TABLET PO PRN (19:29)
[2020-07-24] MEDS: *HR* OxyCODONE/APAP 5/325 TABLET PO PRN ×3 (00:11→11:19)
[2020-07-24 04:32] LABS: Basophils # 0.1 K/mcL (0.0-0.2); Basophils % 0.3 %; Eosinophils # 0.2 K/mcL (0.0-0.6); Hematocrit 28.8 % (35.3-44.9); Immature Granulocytes % 0.6 % (0-4); Lymphocytes # 2.9 K/mcL (0.6-4.6); Lymphocytes % 15.1 %; Mean Corpuscular HGB Conc 32.3 g/dL (31.6-35.5); Mean Corpuscular Hemoglobin 28.9 pg (28.0-33.3); Mean Corpuscular Volume 89.4 fL (83.0-100.0); Mean Platelet Volume 11.5 fL (9.4-12.4); Monocytes % 5.4 %; Platelet Count 141 K/mcL (140-400); Red Blood Count 3.22 M/mcL (3.82-4.97); Red Cell Distribution Width 15.3 % (11.5-14.5); Segmented Neutrophils % 77.6 %
[2020-07-24 04:44] LABS: Hemoglobin 9.3 g/dL (11.5-15.4); White Blood Count 19.3 K/mcL (4.3-11.1)
[2020-07-24 08:10] VITALS: BP 106/67
[2020-07-24] MEDS ORDERED: Prenatal Vit/FA 1 EACH TABLET PO SCH (09:00)
[2020-07-24] MEDS: Ibuprofen 600 MG TABLET PO PRN (11:10)
== END 2020-07-24 17:10 | disposition home or self-care (01) | DRG 806 ==
LOC: 1NENULAB → OBSVTOIN 03:49 → 1NENUOBS 07-23 16:50
PROVIDERS: ADMIT Obstetrics & Gynecology; ATTEND Obstetrics & Gynecology